=== PATIENT | female | born 1995 | race Caucasian/White ===

== ENCOUNTER 2018-01-04 19:44 | Inpatient (IN) | payer BC ==
[2018-01-04] MEDS: SODIUM CHLORIDE 0.9% FLUSH 10 ML SOL IV SCH (20:00)
[2018-01-04 20:21] LABS: BASOPHILS % (AUTO) 1 % (0-3); EOSINOPHILS % (AUTO) 1 % (0-9); HEMATOCRIT 38 % (35-47); MEAN CORPUSCULAR HGB CONC 35.9 gm/dl (32.0-36.0); MEAN CORPUSCULAR VOLUME 86 fL (81-99); MONOCYTES % (AUTO) 6.5 % (0-12); NEUTROPHILS % (AUTO) 75.8 % (37-80)
[2018-01-04] MEDS ORDERED: OXYTOCIN 10000 MU/ML SOL IM PRN (21:12)
[2018-01-04] MEDS ORDERED: SODIUM CHLORIDE 0.9% FLUSH 10 ML SOL IV PRN (21:12)
[2018-01-04] MEDS ORDERED: CARBOPROST 250 MCG/ML SOL IM PRN (21:12)
[2018-01-04] MEDS ORDERED: LACTATED RINGERS 1,000 ML IV PRN (21:12)
[2018-01-04] MEDS ORDERED: FENTANYL 100MCG/2ML SOL IV PRN (21:12)
[2018-01-04] MEDS ORDERED: METHYLERGONOVINE MALEATE 0.2 MG/ML SOL IM PRN (21:12)
[2018-01-04] MEDS ORDERED: MEPIVACAINE HCL 1% MPF 30 ML SOL INFIL PRN (21:12)
[2018-01-05] MEDS ORDERED: SODIUM CHLORIDE 0.9% 500 ML 500 ML IV ONE (00:45)
[2018-01-05] MEDS ORDERED: OXYTOCIN 10000 MU/ML 20,000 MU in LACTATED RINGERS 1,000 ML IV SCH (03:15)
[2018-01-05] MEDS ORDERED: LACTATED RINGERS 1,000 ML IV SCH ×2 (03:15→07:30)
[2018-01-05] MEDS ORDERED: TERBUTALINE SULFATE 1 MG/ML SOL SC PRN (03:15)
[2018-01-05] MEDS ORDERED: LACTATED RINGERS 1,000 ML ONE (03:23)
[2018-01-05] MEDS ORDERED: OXYTOCIN 10000 MU/ML SOL ONE (03:23)
[2018-01-05] MEDS ORDERED: LIDOCAINE HCL 2% MPF SOL ONE (07:11)
[2018-01-05] MEDS ORDERED: FENTANYL 250 MCG/ 5ML SOL ONE (07:13)
[2018-01-05] MEDS ORDERED: ROPIVACAINE HYDROCHLORIDE 5 MG/ML SOL ONE (07:13)
[2018-01-05] MEDS: LACTATED RINGERS 1,000 ML IV SCH ×2 (07:15→07:32)
[2018-01-05] MEDS ORDERED: NALBUPHINE HCL 20 MG/ML SOL IV PRN (07:20)
[2018-01-05] MEDS ORDERED: DIPHENHYDRAMINE 50 MG/ML SOL IV PRN (07:20)
[2018-01-05] MEDS ORDERED: NALOXONE HYDROCHLORIDE 0.4 MG/ML SOL IV PRN (07:20)
[2018-01-05] MEDS ORDERED: EPHEDRINE SULFATE 50 MG/ML SOL IV PRN (07:20)
[2018-01-05] MEDS: SODIUM CHLORIDE 0.9% FLUSH 10 ML SOL IV SCH ×2 (13:38→15:45)
[2018-01-05] MEDS ORDERED: TEMAZEPAM 15MG 15 MG CAP PO PRN (14:03)
[2018-01-05] MEDS ORDERED: APAP/HYDROCODONE 325/5 TAB PO PRN (14:03)
[2018-01-05] MEDS ORDERED: BISACODYL 10 MG SUP PR PRN (14:03)
[2018-01-05] MEDS ORDERED: BENZOCAINE/MENTHOL 1 SPR TOP PRN (14:03)
[2018-01-05] MEDS ORDERED: METHYLERGONOVINE MALEATE 0.2 MG TAB PO PRN (14:03)
[2018-01-05] MEDS ORDERED: FLEET ENEMA PR PRN (14:03)
[2018-01-05] MEDS: IBUPROFEN 600 MG TAB PO PRN (15:29)
[2018-01-05] MEDS: DOCUSATE SODIUM 100 MG SGL PO SCH (21:06)
[2018-01-06] MEDS: IBUPROFEN 600 MG TAB PO PRN ×3 (00:45→20:49)
[2018-01-06] MEDS: SODIUM CHLORIDE 0.9% FLUSH 10 ML SOL IV SCH ×4 (00:45→19:01)
[2018-01-06] MEDS: DOCUSATE SODIUM 100 MG SGL PO SCH ×2 (08:56→20:49)
[2018-01-06 14:38] LABS: ABO B
[2018-01-06 14:39] LABS: RH TYPE Negative
[2018-01-07 00:19] VITALS: O2SAT 98
[2018-01-07 08:02] VITALS: BP 127/73; PULSE 112; RESP 20; TEMP 97
[2018-01-07] MEDS: DOCUSATE SODIUM 100 MG SGL PO SCH (08:11)
[2018-01-07] MEDS: WITCH HAZEL 1 EA PAD TOP PRN ×2 (08:11→08:12)
== END 2018-01-07 11:40 | disposition home or self-care (01) | DRG 560 ==
LOC: OBSVTOIN 19:44 → OB 19:44
PROVIDERS: ADMIT Family Medicine; ATTEND Family Medicine
PROC: 0U7C7ZZ Dilation of Cervix, Via Natural or Artificial Opening (ICD-10-PCS; 2018-01-04)
PROC: 10D07Z6 Extraction of Products of Conception, Vacuum, Via Natural or Artificial Opening (ICD-10-PCS; principal; 2018-01-05)
PROC: 10907ZC Drainage of Amniotic Fluid, Therapeutic from Products of Conception, Via Natural or Artificial Opening (ICD-10-PCS; 2018-01-05)
PROC: 0KQM0ZZ Repair Perineum Muscle, Open Approach (ICD-10-PCS; 2018-01-05)
DX: O13.4 Gestational [pregnancy-induced] hypertension without significant proteinuria, complicating childbirth (principal); O99.42 Diseases of the circulatory system complicating childbirth; I49.8 Other specified cardiac arrhythmias; O70.1 Second degree perineal laceration during delivery; Z3A.39 39 weeks gestation of pregnancy; Z37.0 Single live birth
CPT/HCPCS: 59025; 85018; 85025; 86900; 86901; 94762; J0670; J2590; J2795; J3010; J3105; A9270-GY